=== PATIENT | female | born 1990 | race Caucasian/White ===

== ENCOUNTER 2024-08-08 15:19 | Emergency (ER) | payer BC ==
[~2024-08-08] VITALS: Ht 162.6 cm; Wt 54.0 kg
[2024-08-08 16:38] VITALS: BP 142/73; O2SAT 100
== END 2024-08-08 16:42 | disposition home or self-care (01) ==
LOC: ER 15:19
DX: T40.2X1A Poisoning by other opioids, accidental (unintentional), initial encounter (principal); Y92.89 Other specified places as the place of occurrence of the external cause
CPT/HCPCS: A4606; A4663

== ENCOUNTER 2025-10-03 22:47 | Emergency (ER) | payer BC ==
[~2025-10-03] VITALS: Ht 162.6 cm; Wt 49.9 kg
[2025-10-03] MEDS: IPRATROPIUM BROMIDE 0.5 MG/2.5 ML NEBU NEB ONE (23:17)
[2025-10-03] MEDS: ALBUTEROL SULFATE 2.5 MG/3 ML NEBU NEB ONE (23:18)
[2025-10-03] MEDS ORDERED: ALBUTEROL SULFATE 2.5 MG/3 ML NEBU ONE (23:20)
[2025-10-03] MEDS ORDERED: IPRATROPIUM BROMIDE 0.5 MG/2.5 ML NEBU ONE (23:20)
[2025-10-03 23:32] VITALS: O2SAT 95
[2025-10-03 23:42] VITALS: BP 112/81
[2025-10-03 23:45] VITALS: O2SAT 100
[2025-10-03] MEDS ORDERED: ALBU8.5H8 INH (23:46)
[2025-10-04 00:09] VITALS: BP 112/81; TEMP 98; O2SAT 100
== END 2025-10-04 00:10 | disposition home or self-care (01) ==
LOC: ER 22:47
DX: R06.02 Shortness of breath (principal); J06.9 Acute upper respiratory infection, unspecified; J98.01 Acute bronchospasm; T50.905A Adverse effect of unspecified drugs, medicaments and biological substances, initial encounter; Y92.89 Other specified places as the place of occurrence of the external cause
CPT/HCPCS: A4606; A4663; J3590